=== PATIENT | female | born 1975 | race Caucasian/White ===

== ENCOUNTER → 2017-02-15 | Outpatient (CLI) | payer BC ==
[~2017-02-15] MED LIST: COLACE-DPS100 MG PO; EFFEXOR XR DPS150 MG PO; FEOSOL-DPS325 MG PO; LISINOPRIL20 MG PO; MOTRIN-DPS400 MG PO; PERCOCET 5 DPS1 TAB PO; PRILOSEC DPS20 MG PO; SYNTHROID DP0.075 MG PO
== END | disposition home or self-care (01) ==
DX: N63 Unspecified lump in breast (principal); N60.02 Solitary cyst of left breast; R92.2 Inconclusive mammogram; Z98.890 Other specified postprocedural states